=== PATIENT | female | born 1950 | race Caucasian/White ===

== ENCOUNTER 2018-01-05 14:04 | Emergency (ER) | payer MEDICARE, BC ==
[~2018-01-05] VITALS: Ht 157.5 cm; Wt 57.7 kg
[2018-01-05] MEDS ORDERED: CRESTOR10 MG PO (14:22)
[2018-01-05] MEDS ORDERED: HYDROCORTISONE10 MG PO (14:22)
[2018-01-05] MEDS ORDERED: ULTRAM50 M1 PO (15:37)
[2018-01-05 15:53] VITALS: BP 12/74
== END 2018-01-05 15:57 | disposition home or self-care (01) ==
LOC: ED 14:04
DX: S00.03XA Contusion of scalp, initial encounter (principal); E07.9 Disorder of thyroid, unspecified; S16.1XXA Strain of muscle, fascia and tendon at neck level, initial encounter; F32.9 Major depressive disorder, single episode, unspecified; E78.00 Pure hypercholesterolemia, unspecified; W01.190A Fall on same level from slipping, tripping and stumbling with subsequent striking against furniture, initial encounter; Y92.099 Unspecified place in other non-institutional residence as the place of occurrence of the external cause; Z86.79 Personal history of other diseases of the circulatory system